=== PATIENT | female | born 1980 | race Caucasian/White ===

== ENCOUNTER 2018-03-30 16:03 | Inpatient (IN) | payer OTHER ==
[~2018-03-30] VITALS: Ht 167.6 cm; Wt 83.5 kg
[~2018-03-30 16:03] MED LIST: IBUP-2070 PO; PREN1TAB80 PO
[2018-03-30] MEDS ORDERED: OXYTOCIN 30 UNITS/LACT RINGERS 500 ML IV ONE (16:05)
[2018-03-30] MEDS ORDERED: RINGERS SOLUTION,LACTATED 1,000 ML IV ONE (16:05)
[2018-03-30] MEDS ORDERED: LIDOCAINE/PF 1% 30 ML VIAL INJ PRN (16:15)
[2018-03-30] MEDS ORDERED: FERR-89 PO (16:19)
[2018-03-30] MEDS ORDERED: CALC-261 PO (16:19)
[2018-03-30 16:50] LABS: BASOPHILS % (AUTO) 1.4 % (0.0-2.0); EOSINOPHILS % (AUTO) 1.7 % (1.0-6.0); HEMOGLOBIN 12.3 g/dL (12.0-16.0); LYMPHOCYTES # (AUTO) 3.4 K/uL (1.0-4.8); LYMPHOCYTES % (AUTO) 25.3 % (22.0-44.0); MEAN CORPUSCULAR HEMOGLOBIN 29.9 pg (26.0-34.0); MEAN CORPUSCULAR HGB CONC 33.3 G/dL (31.0-37.0); MEAN CORPUSCULAR VOLUME 90 fL (80-100); MONOCYTES # (AUTO) 0.9 K/uL (0.1-1.0); MONOCYTES % (AUTO) 6.8 % (2.0-9.0); NEUTROPHILS # (AUTO) 8.6 K/uL (1.8-7.7); NEUTROPHILS % (AUTO) 64.8 % (40.0-70.0); PLATELET COUNT (AUTO)-OB 396 K/uL (150-450); RED BLOOD CELL COUNT(AUTO) 4.11 MIL/uL (4.00-5.20); RED CELL DISTRIBUTION WIDTH 15.2 % (11.5-14.5)
[2018-03-30] MEDS ORDERED: INSNPH SQ (17:00)
[2018-03-30 17:14] LABS: GLUCOMETER DEV NAME(LOC) 4S.; GLUCOSE,POINT OF CARE 71 MG/DL (70-110)
[2018-03-30 17:36] VITALS: BP 109/68
[2018-03-30] MEDS ORDERED: DINOPROSTONE 10 MG VAGINAL SUPPOSITORY VG ONE (18:00)
[2018-03-30] MEDS: RINGERS SOLUTION,LACTATED 1,000 ML IV SCH (18:26)
[2018-03-30 20:22] LABS: GLUCOMETER DEV NAME(LOC) 4S.; GLUCOSE,POINT OF CARE 86 MG/DL (70-110)
[2018-03-30 22:23] LABS: GLUCOMETER DEV NAME(LOC) 4S.; GLUCOSE,POINT OF CARE 79 MG/DL (70-110)
[2018-03-31] MEDS: RINGERS SOLUTION,LACTATED 1,000 ML IV SCH ×2 (00:05→08:13)
[2018-03-31 00:52] LABS: GLUCOMETER DEV NAME(LOC) 4S.; GLUCOSE,POINT OF CARE 63 MG/DL (70-110)
[2018-03-31 02:46] LABS: GLUCOMETER DEV NAME(LOC) 4S.; GLUCOSE,POINT OF CARE 67 MG/DL (70-110)
[2018-03-31 04:59] LABS: GLUCOMETER DEV NAME(LOC) 4S.; GLUCOSE,POINT OF CARE 70 MG/DL (70-110)
[2018-03-31] MEDS ORDERED: -PHARMACY NOTE- MISC ONE (06:00)
[2018-03-31 06:59] LABS: GLUCOMETER DEV NAME(LOC) 4S.; GLUCOSE,POINT OF CARE 69 MG/DL (70-110)
[2018-03-31] MEDS ORDERED: OXYTOCIN 30 UNITS/LACT RINGERS 500 ML IV PRN (08:38)
[2018-03-31] MEDS ORDERED: ROPIVACAINE HCL/PF 0.2% 100 ML ED ONE (08:51)
[2018-03-31] MEDS ORDERED: DiphenhydrAMINE HCL 50 MG/ML VIAL IVP PRN (09:15)
[2018-03-31] MEDS ORDERED: ONDANSETRON HCL 4 MG/2 ML VIAL IVP PRN (09:15)
[2018-03-31] MEDS ORDERED: ROPIVACAINE HCL/PF 0.2% 100 ML ED PRN (09:15)
[2018-03-31] MEDS ORDERED: OXYTOCIN 30 UNITS/LACT RINGERS 500 ML IV ONE (13:02)
[2018-03-31] MEDS ORDERED: LIDOCAINE/PF 1% 30 ML VIAL INJ PRN (13:15)
[2018-03-31] MEDS ORDERED: BENZOCAINE 20%/MENTHOL 56 GM SPRAY CANISTER TP PRN (13:15)
[2018-03-31] MEDS ORDERED: GLYCERIN/WITCH HAZEL LEAF 40 PADS JAR TP PRN (13:15)
[2018-03-31] MEDS ORDERED: MAGNESIUM HYDROXIDE SUSPENSION 30 ML UDCUP PO PRN (13:15)
[2018-03-31] MEDS ORDERED: LANOLIN 7 GM OINTMENT TP PRN (13:15)
[2018-03-31] MEDS ORDERED: OxyCODONE HCL/ACETAMINOPHEN 5-325 MG TABLET PO PRN ×2 (13:15)
[2018-03-31 15:49] LABS: GLUCOMETER DEV NAME(LOC) 4S.; GLUCOSE,POINT OF CARE 63 MG/DL (70-110)
[2018-03-31 15:49] LABS: GLUCOMETER DEV NAME(LOC) 4S.; GLUCOSE,POINT OF CARE 52 MG/DL (70-110)
[2018-03-31] MEDS: IBUPROFEN 800 MG TABLET PO PRN ×2 (17:11→22:33)
[2018-04-01 06:33] LABS: BASOPHILS % (AUTO) 0.7 % (0.0-2.0); EOSINOPHILS % (AUTO) 1.5 % (1.0-6.0); HEMATOCRIT 34.4 % (36-46); HEMOGLOBIN 11.3 g/dL (12.0-16.0); LYMPHOCYTES # (AUTO) 4.6 K/uL (1.0-4.8); LYMPHOCYTES % (AUTO) 29.4 % (22.0-44.0); MEAN CORPUSCULAR HEMOGLOBIN 30.4 pg (26.0-34.0); MEAN CORPUSCULAR VOLUME 92 fL (80-100); MONOCYTES # (AUTO) 1.1 K/uL (0.1-1.0); MONOCYTES % (AUTO) 7.1 % (2.0-9.0); NEUTROPHILS # (AUTO) 9.6 K/uL (1.8-7.7); NEUTROPHILS % (AUTO) 61.3 % (40.0-70.0); PLATELET COUNT (AUTO)-OB 328 K/uL (150-450); RED BLOOD CELL COUNT(AUTO) 3.73 MIL/uL (4.00-5.20); RED CELL DISTRIBUTION WIDTH 15.3 % (11.5-14.5)
[2018-04-01] MEDS ORDERED: IBUP-2071 PO (12:12)
[2018-04-01] MEDS ORDERED: DSS100 PO (12:13)
[2018-04-01] MEDS ORDERED: FERR-89 PO (12:15)
== END 2018-04-01 15:05 | disposition home or self-care (01) | DRG 807 ==
LOC: OBSVTOIN 16:03 → 4S 16:03
PROVIDERS: ADMIT Obstetrics & Gynecology; ATTEND Obstetrics & Gynecology
PROC: 10E0XZZ Delivery of Products of Conception, External Approach (ICD-10-PCS; principal; 2018-03-31)
PROC: 0W8NXZZ Division of Female Perineum, External Approach (ICD-10-PCS; 2018-03-31)
PROC: 3E0R3BZ Introduction of Anesthetic Agent into Spinal Canal, Percutaneous Approach (ICD-10-PCS; 2018-03-31)
PROC: 00HU33Z Insertion of Infusion Device into Spinal Canal, Percutaneous Approach (ICD-10-PCS; 2018-03-31)
DX: O69.81X0 Labor and delivery complicated by cord around neck, without compression, not applicable or unspecified (principal); Z37.0 Single live birth; Z3A.39 39 weeks gestation of pregnancy
CPT/HCPCS: 86850; 86900; 86901; J2590; J2795; J7120